=== PATIENT | female | born 1960 | race Hispanic/Latino ===

== ENCOUNTER 2023-01-12 19:33 | Emergency (ER) | payer OTHER, BC ==
[~2023-01-12] VITALS: Ht 160 cm; Wt 74.8 kg
[2023-01-12 20:16] VITALS: O2SAT 100
== END 2023-01-12 22:31 | disposition home or self-care (01) ==
LOC: ER 20:17
DX: S92.511A Displaced fracture of proximal phalanx of right lesser toe(s), initial encounter for closed fracture (principal); W22.03XA Walked into furniture, initial encounter; Y93.01 Activity, walking, marching and hiking; Y92.89 Other specified places as the place of occurrence of the external cause
CPT/HCPCS: 99283